=== PATIENT | female | born 1985 | race Caucasian/White ===

== ENCOUNTER 2019-02-07 20:49 | Emergency (ER) | payer SELFPAY ==
[2019-02-07] MEDS ORDERED: NORMAL SALINE 1000 ML 1,000 ML IV ONE (21:48)
[2019-02-07] MEDS ORDERED: METOPROLOL TARTRATE 25 MG TABLET PO ONE (21:48)
[2019-02-07] MEDS ORDERED: DIAZEPAM INJ 10 MG/2 ML DISP.SYRIN IV ONE (21:48)
--- NOTE | 2019-02-07 21:49 | ER Document Report ---
ED General - General Chief Complaint: Probable Seizure Stated Complaint: POSSIBLE ANGEL Time Seen by Provider: 02/07/19 21:11 Primary Care Provider: CHARMAINE LANE NP [Primary Care Provider] - Follow up tomorrow Notes: Patient is a 33-year-old female with a past medical history of alcohol abuse, anxiety, presents after having a "seizure" prior to arrival. Patient states that she was lying in bed with her daughter feeling increasingly anxious, felt like she was about to have "1 of my attacks", ran outside and apparently began flailing around on the ground in a violent manner. Was noticed by her neighbor but apparently she reports she did call 911 prior to the onset of this episode. When EMS arrived patient was apparently highly anxious, histrionic but able to be redirected and had discontinuation of her episode on verbal command. She was administered midazolam for calming and not to terminate any seizure activity. The patient states that she is never had a work-up for these episodes she has had several similar in the past. She states that they are triggered by anxiety or feeling very stressed out. They do seem to go away eventually on their own. She states today is very typical for these episodes. Currently states that she feels very anxious, tremulous and feels that she may also be withdrawing from alcohol. Denies additional drug use. TRAVEL OUTSIDE OF THE [place] IN LAST 30 DAYS: No - Related Data Allergies/Adverse Reactions: promethazine HCl [From Phenergan] Allergy (Verified 06/17/15 10:04) Past Medical History - General Information source: Patient - Social History Smoking Status: Current Every Day Smoker Frequency of alcohol use: Heavy Drug Abuse: None Lives with: Family Family History: Reviewed & Not Pertinent Patient has suicidal ideation: No Patient has homicidal ideation: No Renal/ Medical History: Denies: Hx Peritoneal Dialysis Psychiatric Medical History: Reports: Hx Depression - Immunizations Hx Diphtheria, Pertussis, Tetanus Vaccination: Yes Review of Systems - Review of Systems Notes: Constitutional: Negative for fever. HENT: Negative for sore throat. Eyes: Negative for visual changes. Cardiovascular: Negative for chest pain. Respiratory: Negative for shortness of breath. Gastrointestinal: Negative for abdominal pain, vomiting or diarrhea. Genitourinary: Negative for dysuria. Musculoskeletal: Negative for back pain. Skin: Negative for rash. Neurological: Negative for headaches, weakness or numbness. 10 point ROS negative except as marked above and in HPI. Physical Exam - Vital signs Vitals: Temp Pulse Resp BP Pulse Ox 98.0 F 147 H 20 108/85 97 02/07/19 21:15 02/07/19 21:15 02/07/19 21:15 02/07/19 21:15 02/07/19 21:15 Interpretation: Tachycardic Notes: PHYSICAL EXAMINATION: GENERAL: Highly anxious but in no acute distress HEAD: Atraumatic, normocephalic. EYES: Pupils equal round and reactive to light, extraocular movements intact, sclera anicteric, conjunctiva are normal. ENT: nares patent, oropharynx clear without exudates. Moist mucous membranes. NECK: Normal range of motion, supple without lymphadenopathy LUNGS: Breath sounds clear to auscultation bilaterally and equal. No wheezes rales or rhonchi. HEART: Regular tachycardia without murmurs ABDOMEN: Soft, nontender, normoactive bowel sounds. No guarding, no rebound. No masses appreciated. EXTREMITIES: Normal range of motion, no pitting or edema. No cyanosis. NEUROLOGICAL: Face symmetric. Tongue protrudes midline. Extraocular motions intact. Pupils are 2 mm and equally reactive. Normal speech, normal gait. 5 out of 5 strength in both the distal and proximal upper and lower extremities bilaterally. Sensation is grossly intact throughout. Finger to nose testing normal. Pronator drift normal. PSYCH: Anxious, tremulous SKIN: Warm, Dry, normal turgor, no rashes or lesions noted. Course - Re-evaluation Re-evalutation: 02/07/19 21:49 Patient presents with episode that sounds most consistent with PNES. Patient was noted to be rolling around, flailing around in her front yard screaming. EMS was able to redirect the patient and she did not have a postictal phase. Not consistent with a true epileptic seizure. Patient reports a history of similar in the past often triggered by anxiety. Has never been formally diagnosed with epilepsy nor PNES. On exam the patient is extraordinarily anxious, tremulous, states that she feels like she is having an anxiety attack. The patient also notes that she has not taken her normal home medications today including metoprolol 25 mg which could also account for her marked tachycardia at time of arrival. She has no focal neurologic deficits on exam. Noted to have scattered abrasions diffusely. Patient does admit to heavy alcohol use, admits to withdrawal and feels like she is withdrawing currently. Last drink was yesterday. Not interested in quitting at this point. Will administer her home dose of oral metoprolol, dose of diazepam for anxiolysis and to control any component of alcohol withdrawal. Also provide IV fluids and obtain standard screening labs. If patient has symptom medic improvement, improvement of tachycardia will plan for discharge home with follow-up. 02/07/19 22:56 Patient has symptomatically improved, heart rate improved. Labs unremarkable with exception of mild transaminitis consistent with alcohol abuse pattern. At this time will discharge with return precautions and follow-up recommendations. Verbal discharge instructions given a the bedside and opportunity for questions given. Medication warnings reviewed. Patient is in agreement with this plan and has verbalized understanding of return precautions and the need for primary care follow-up in the next 24-72 hours. - Vital Signs Vital signs: Temp Pulse Resp BP Pulse Ox 98.9 F 100 20 127/86 H 100 02/07/19 23:56 02/07/19 23:56 02/07/19 23:56 02/07/19 23:56 02/07/19 23:56 - Laboratory Result Diagrams: 02/07/19 22:13 Laboratory results interpreted by me: 02/07/19 22:13 Sodium 136.9 L Potassium 3.2 L Glucose 149 H AST 127 H Discharge - Discharge Clinical Impression: Tachycardia, Multiple abrasions, Pseudoseizure Alcohol withdrawal Qualifiers: Complication of substance-induced condition: with unspecified complication Qualified Code(s): F10.239 - Alcohol dependence with withdrawal, unspecified Condition: Good Disposition: HOME, SELF-CARE Additional Instructions: Please follow-up closely with your primary care doctor regarding your emergency department visit today. Your symptoms may be related to withdrawing from al cohol or not taking your normal home medications. The characterization of your symptoms given by the paramedics is not consistent with a epileptic seizure. This could have been an anxiety based episode called pseudogenic, non- epileptiform seizures. Please return to the emergency department immediately if you have recurrent episodes similar to today, increasing shakiness, vomiting, confusion, weakness, numbness, or any other symptoms that are worrisome to you. I advised to follow-up with your primary doctor within the next 24 to 48 hours. Referrals: CHARMAINE LANE, [employer] [Primary Care Provider] - Follow up tomorrow
[2019-02-07 22:49] LABS: ALANINE AMINOTRANSFERASE 49 U/L (9-52); ALBUMIN 3.9 g/dL (3.5-5.0); ALKALINE PHOSPHATASE 120 U/L (38-126); ANION GAP 13 (5-19); ASPARTATE AMINO TRANSFERASE 127 U/L (14-36); BILIRUBIN,DIRECT 0.3 mg/dL (0.0-0.4); BLOOD UREA NITROGEN 14 mg/dL (7-20); CALCIUM 8.5 mg/dL (8.4-10.2); CARBON DIOXIDE 23 mmol/L (22-30); CHLORIDE 101 mmol/L (98-107); GLUCOSE 149 mg/dL (75-110); POTASSIUM 3.2 mmol/L (3.6-5.0); SODIUM 136.9 mmol/L (137-145); TOTAL PROTEIN 6.8 g/dL (6.3-8.2)
[2019-02-07 23:57] VITALS: BP 127/86
== END 2019-02-07 23:57 | disposition home or self-care (01) ==
LOC: ER 20:49
DX: G40.89 Other seizures (principal); R00.0 Tachycardia, unspecified; F10.239 Alcohol dependence with withdrawal, unspecified; T14.8XXA Other injury of unspecified body region, initial encounter; F17.200 Nicotine dependence, unspecified, uncomplicated; Z88.8 Allergy status to other drugs, medicaments and biological substances
CPT/HCPCS: 99285; 96361; 96374; 36415; 84703; 80053; J3360; J7030